=== PATIENT | female | born 1990 | race Caucasian/White ===

== ENCOUNTER 2017-09-10 10:31 | Emergency (ER) | payer OTHER ==
[2017-09-10 11:28] LABS: #Eosinphils 0.1 thou/uL (0.0-0.7); #Lymphocytes 1.8 thou/uL (1.20-3.40); #Monocytes 0.5 thou/uL (0.11-0.59); #Neutrophils 7.6 thou/uL (1.40-6.50); %Basophils 0.3 % (0.0-1.0); %Eosinophils 0.7 % (0.0-10.0); %Lymphocytes 18.2 % (21.0-51.0); %Monocytes 4.6 % (0.0-10.0); Hematocrit 38.5 % (36.0-47.0); Mean Platelet Volume 7.5 fL (7.4-10.4); Red Blood Cell (RBC) Count 4.45 mill/uL (4.20-5.40)
[2017-09-10 12:22] LABS: Bilirubin Negative (Negative); Blood, Urine Negative (Negative); Glucose, Urine (Dipstick) Negative (Negative); Ketone, Urine Negative (Negative); Nitrite Negative (Negative); Protein, Urine (Dipstick) Negative (Neg-Trace); Urobilinogen 0.2 mg/dL (0.2-1.0)
--- NOTE | 2017-09-10 13:31 | ULT ---
ULTRASOUND PELVIC TRANSVAGINAL: HISTORY: Pain and bleeding. HCG is 81,762. LMP 06/30/17. TECHNIQUE: Real-time, harris scale, and color evaluation as well as spectral analysis of the pelvis with transabd ominal and transvaginal approach. FINDINGS: The uterus is normal. The right ovary and left ovary are normal. Adequate vascular flow. There is an intrauterine gestational sac with a pole with a heart rate documented at 158 b.p.m . No significant subchorionic hemorrhage. The crown-rump length measures 3.32 cm, 10 week 1 day. Estimated age by ultrasound is 10 week 1 day with estimated date of delivery 04/07/18. IMPRESSION: Single viable intrauterine with average ultrasound age 10 weeks 2 days, estimated date of delivery 04/07/18. This is concordant with the gestational age. POS: [facility]
== END 2017-09-10 14:46 | disposition home or self-care (01) ==
LOC: ERS 10:31
DX: O20.0 Threatened abortion (principal); O99.331 Smoking (tobacco) complicating pregnancy, first trimester; F17.210 Nicotine dependence, cigarettes, uncomplicated; O10.911 Unspecified pre-existing hypertension complicating pregnancy, first trimester; E03.9 Hypothyroidism, unspecified; O99.281 Endocrine, nutritional and metabolic diseases complicating pregnancy, first trimester; Z3A.10 10 weeks gestation of pregnancy
CPT/HCPCS: 36415; 51701; 76856; 81003; 81025; 84702; 85025; A4353

== ENCOUNTER 2017-11-04 15:53 | Emergency (ER) | payer OTHER ==
[2017-11-04] MEDS ORDERED: Promethazine HCl 25 MG/ML VIAL ONE (16:19)
[2017-11-04] MEDS ORDERED: hydrALAZINE 20 MG/ML VIAL ONE (16:19)
[2017-11-04] MEDS ORDERED: HYDROcodone/Acetaminophen 5/325 mg Tablet ONE (17:19)
== END 2017-11-04 20:15 | disposition home or self-care (01) ==
LOC: ERS 15:53
DX: O10.912 Unspecified pre-existing hypertension complicating pregnancy, second trimester (principal); O99.282 Endocrine, nutritional and metabolic diseases complicating pregnancy, second trimester; E03.9 Hypothyroidism, unspecified; Z87.891 Personal history of nicotine dependence; Z3A.18 18 weeks gestation of pregnancy
CPT/HCPCS: 96365; 96366; 96375; J0360; J2550

== ENCOUNTER 2018-02-13 01:15 | Day surgery (SDC) | payer OTHER ==
[2018-02-13 02:01] VITALS: BP 134/62; TEMP 98.2; BMI 58.2
[2018-02-13] MEDS ORDERED: Lactated Ringer's 1,000 ML IV SCH ×2 (02:30)
--- NOTE | 2018-02-13 02:30 | PDOC.LDHP ---
Labor and Delivery H&P HPI: This is a patient of Dr Gardner who presents to L&D at 0215 with a complaint of "high blood pressure at home and contractions". She is a 27 yo at 32 weeks and 4 days. She has a HX of CHTHN on labetolol 100mg po BID but her last dose was 100mg because she ran out of her medication. She has hypothyrdoidism on synthroid. NO recent sex or trauma. No VB. She states she is "always wet" in the vaginal area but does not describe leakage or gush of fluid. No visual changes but she does have a headache. No RUQ pain. Good FM. Pror CS HX at term x 2 Review of Systems: a complete ROS was performed and results per HPI. Family History noncontributory Current gestational age (weeks): 32 (4 days) Dating criteria: last menstrual period Grav: 4 Para: 2 Current complications: hypertension, other (Morbid obesity) Current medications: other (Labetolol 200mg po BID; Synthroid) Previous surgical history: other (Prior CS x 2 at term; Hx cardiac ablation; HX cholecystectomy) Allergies/Adverse Reactions: Allergies Allergy/AdvReac Type Severity Reaction Status Date / Time Sulfa (Sulfonamide Allergy Severe Severe Verified 07/20/15 05:41 Antibiotics) Hives meperidine HCl [From Demerol] Allergy Intermediate Verified 07/20/15 05:41 Social history: none - Physical Exam Vital signs reviewed and normal: yes (BP 130/60-70s, Pulse 70s) General: NAD Heart: RRR Lungs: CTAB Abdomen: other (morbid obesity) FHT: category 1 (difficult to trace due to BMI) Redan contractions every: irregular - Assessment 1. Threatened labor at 32 weeks 4 days 2. CHTN on medication 3. Hypothyroid on medication 4. Morbid obesity 5. Prior CS x 2 - Plan Plan: observation in L&D (We will: 1. Obtain CBC, CMP, urine protein/Cr ratio, FFN, Amnisure for now 2. If FFN positive (no recent sex HX), check cervix and give steroids. No MagSo4 for neuroprotection as over the 32 week cutoff 3. Get sono for EFW/EGA 4. Monitors 5. IVF hydrate)
[2018-02-13 02:51] LABS: Creatinine, Urine 54.39 mg/dL (47-110); Protein, Urine Random Quant Less than 10 mg/dL
[2018-02-13 03:11] LABS: #Basophils 0.1 thou/uL (0.0-0.2); #Eosinphils 0.1 thou/uL (0.0-0.7); #Lymphocytes 2.7 thou/uL (1.20-3.40); #Monocytes 0.9 thou/uL (0.11-0.59); #Neutrophils 11.5 thou/uL (1.40-6.50); %Basophils 0.4 % (0.0-1.0); %Eosinophils 0.7 % (0.0-10.0); %Lymphocytes 17.7 % (21.0-51.0); %Monocytes 5.8 % (0.0-10.0); %Neutrophils 75.5 % (42.0-75.0); Hemoglobin 10.1 g/dL (12.0-16.0); Mean Corpuscular HGB CONC 34.8 g/dL (32.0-36.0); Mean Corpuscular Volume 86.1 fl (81.0-99.0); Mean Platelet Volume 8.5 fL (7.4-10.4); Platelet Count 248 thou/uL (130-400); RBC Distribution Width 13.9 % (11.5-14.5); Red Blood Cell (RBC) Count 3.37 mill/uL (4.20-5.40); White Blood Cell (WBC) Count 15.2 thou/uL (4.8-10.8)
[2018-02-13 03:20] LABS: Amnisure Test No Membranes Rupture (No Rupture)
[2018-02-13 03:21] LABS: Amnisure Internal Control QC ACCEPTABLE (ACCEPTABLE)
--- NOTE | 2018-02-13 03:26 | PDOC.EVN ---
Event Note - Event Note Event Note: @0325: Amnisure negative. Urine protein negative. FFN still pending in lab.
[2018-02-13 03:32] LABS: ALT (SGPT) 12 U/L (8-55); AST (SGOT) 10 U/L (5-34); Albumin 3.6 g/dL (3.5-5.0); Alkaline Phosphatase 94 U/L (40-150); Anion Gap 12 mmol/L (10-20); BUN (Urea Nitrogen) 11 mg/dL (7.0-18.7); Bilirubin, Total 0.6 mg/dL (0.2-1.2); Calc. Creatinine Clearance 311 mL/min (70-130); Calcium 10.1 mg/dL (7.8-10.44); Carbon Dioxide 24 mmol/L (22-29); Chloride 105 mmol/L (98-107); Estimated GFR-MDRD Greater than 90; Globulin 3.4 g/dL (2.4-3.5); Glucose 95 mg/dL (70-105); Potassium 3.9 mmol/L (3.5-5.1); Sodium 137 mmol/L (136-145)
[2018-02-13 03:34] LABS: FFN Internal QC Analyzer PASS (PASS); FFN Internal QC Cassette PASS (PASS); Fetal Fibronectin Negative (Negative)
--- NOTE | 2018-02-13 03:45 | PDOC.EVN ---
Event Note - Event Note Event Note: @0340: Lab check: FFN is negative. patient feels better after IVFs. Bps are 120s/70s. I have seen her again at bedside; clinically well with no evidence PTL by FFN or overall impression. I will keep on L&D for 1-2 more hours and keep with IVF hydration and likely send home to follow up the VP3 result as an outpatient. Rene done, report pending.
--- NOTE | 2018-02-13 17:15 | ULT ---
PRELIMINARY REPORT/[facility]/EMERGENCY AFTER HOURS PROCEDURE: EXAM: US Uterus, Limited EXAM DATE/TIME: Exam ordered 02/13/2018 3:01 AM CLINICAL HISTORY: 27 years old, female; Pain; complicated by abdominal or pelvic pain; Lower; Third trimester ; Gestational age or lmp: 34w0d; ; Prior surgery; Surgery date: 6+ months; Surgery type: C-se c; Patient HX: Morbid obesity, threatened labor TECHNIQUE: Real-time ultrasound of the maternal uterus (limited) with image documentation. COMPARISON: No relevant prior studies available. FINDINGS: Fetus: Single live intrauterine gestation. biometry measurements are compatible with estimated gestational age of 34 weeks zero days. Estimated weight is 2096 g. Position: position is transverse with head maternal left. Heart rate: heart rate 145 beats per minute. Placenta: Placenta is posterior and unremarkable. No abruption. Amniotic fluid: Amniotic fluid volume is normal with an LAURIE of 18.9 centimeters. Cervix: Cervix is closed with length measuring approximately 4.9 cm on Limited transabdominal IMPRESSION: Single live intrauterine gestation as above. Thank you for allowing us to participate in the care of your patient. Dictated and Authenticated by: Antonio Kate MD 02/13/2018 4:14 AM Central Time ([place] & [place]) FINAL REPORT EMERGENCY AFTER HOURS STUDY: ULTRASOUND OBSTETRICAL COMPLETE: HISTORY: 27-year-old female in third trimester of with threatened . FINDINGS: number: Gallegos lie: Transverse, head to maternal left. Maternal cervix: 5 cm in length and closed. Placenta: Posterior, no placenta previa. Amniotic fluid volume: LAURIE = 19 cm heart rate: 145 bpm The following anatomy is visualized, with no evidence of anomalies: Head, lateral ventricles, fourth ventricle, stomach, kidneys, nose and lips, upper extremities and lo wer extremities. The rest of the anatomy is poorly visualized due to maternal body habitus. biometry: Head circumference (HC): 31.6 cm 35 w 3 d Biparietal diameter (BPD): 8.4 cm 33 w 6 d Abdominal circumference (AC): 28.5 cm 32 w 3 d Femur length (FL): 6.4 cm 32 w 6 d Average ultrasound age (AUA): 34 w 0 d Estimated date of delivery ([place]): 03-27-18 Last menstrual period (LMP): 8--17 Gestational age by LMP: 32 w 4 d Estimated weight (EFW): 2096 g, +/- 310 g (4 lbs. 0 oz., +/- 11 oz. The report agrees with the preliminary report by [facility] IMPRESSION: 1. Live third trimester intrauterine gestation. 2. Estimated gestational age of 34 weeks, 0 days. 3. Transverse lie, with head to maternal left. JEFF Ching POS: [facility]
== END 2018-02-13 05:10 | disposition home or self-care (01) ==
LOC: L&D/OP 01:15
PROVIDERS: ATTEND Family Medicine
DX: O47.03 False labor before 37 completed weeks of gestation, third trimester (principal); O10.913 Unspecified pre-existing hypertension complicating pregnancy, third trimester; O99.283 Endocrine, nutritional and metabolic diseases complicating pregnancy, third trimester; E03.9 Hypothyroidism, unspecified; O99.213 Obesity complicating pregnancy, third trimester; E66.01 Morbid (severe) obesity due to excess calories; Z3A.32 32 weeks gestation of pregnancy; Z68.43 Body mass index [BMI] 50.0-59.9, adult; Z79.899 Other long term (current) drug therapy; Z88.2 Allergy status to sulfonamides; Z88.5 Allergy status to narcotic agent; Z98.891 History of uterine scar from previous surgery
CPT/HCPCS: 59025; 76815; 80053; 82570; 82731; 84112; 84156; 85025; 87480; 87510; 87660; 96360; 96361; 99285

== ENCOUNTER 2018-08-14 12:42 | Emergency (ER) | payer OTHER, SELFPAY ==
[2018-08-14 13:21] LABS: #Eosinphils 0.3 thou/uL (0.0-0.7); #Lymphocytes 1.9 thou/uL (1.20-3.40); #Monocytes 0.4 thou/uL (0.11-0.59); %Basophils 0.5 % (0.0-1.0); %Eosinophils 3.5 % (0.0-10.0); %Lymphocytes 22.3 % (21.0-51.0); %Monocytes 4.1 % (0.0-10.0); %Neutrophils 69.7 % (42.0-75.0); Hemoglobin 11.5 g/dL (12.0-16.0); Mean Corpuscular HGB CONC 32.7 g/dL (32.0-36.0); Mean Corpuscular Hemoglobin 26.2 pg (27.0-31.0); Mean Platelet Volume 8.5 fL (7.4-10.4); Platelet Count 301 thou/uL (130-400); RBC Distribution Width 14.5 % (11.5-14.5); Red Blood Cell (RBC) Count 4.39 mill/uL (4.20-5.40); White Blood Cell (WBC) Count 8.6 thou/uL (4.8-10.8)
[2018-08-14 13:35] LABS: Bilirubin Negative (Negative); Blood, Urine Negative (Negative); Clarity CLEAR (Clear); Glucose, Urine (Dipstick) Negative (Negative); Leukocyte Trace (Negative); Nitrite Negative (Negative); Protein, Urine (Dipstick) Negative (Neg-Trace); Urobilinogen 0.2 mg/dL (0.2-1.0)
[2018-08-14 13:37] LABS: Bacteria/HPF 3+ HPF (None Seen); Hyaline Casts/LPF 0-3 HYALINE CAST LPF (0-3 Hyaline); Pathc Cast-AUWi Flag 0.14 (0-2.49); RBC/HPF 0-3 HPF (0-3); Squamous Epithelial 0-3 HPF (0-3)
[2018-08-14 13:39] LABS: Pregnancy Test - Urine (BHCG) Negative (Negative); Pregu Control Background? CLEAR/WHITE (CLR/WHITE); Pregu Control Bar Appear? YES (CONTROL BAR)
[2018-08-14 13:47] LABS: Anion Gap 13 mmol/L (10-20); BUN (Urea Nitrogen) 13 mg/dL (7.0-18.7); Calc. Creatinine Clearance 0 mL/min (70-130); Carbon Dioxide 24 mmol/L (22-29); Chloride 105 mmol/L (98-107); Estimated GFR-MDRD 74; Potassium 3.7 mmol/L (3.5-5.1); Sodium 138 mmol/L (136-145)
[2018-08-14 13:48] LABS: ALT (SGPT) 29 U/L (8-55); AST (SGOT) 27 U/L (5-34); Albumin 4.4 g/dL (3.5-5.0); Alkaline Phosphatase 108 U/L (40-150); Bilirubin, Total 0.7 mg/dL (0.2-1.2); Calcium 9.3 mg/dL (7.8-10.44); Globulin 3.6 g/dL (2.4-3.5); Glucose 133 mg/dL (70-105)
[2018-08-14 13:50] LABS: Troponin I Less than 0.010 ng/mL (< 0.028)
[2018-08-14] MEDS ORDERED: ISOVUE-370 76%-LOCM 1 ML ONE (13:58)
[2018-08-14] MEDS ORDERED: diphenhydrAMINE 50 MG/ML VIAL ONE (14:00)
[2018-08-14] MEDS ORDERED: Ondansetron HCl/PF 4 MG/2 ML Vial ONE (14:00)
[2018-08-14] MEDS ORDERED: Labetalol HCl 100 MG/20 ML VIAL ONE (14:54)
--- NOTE | 2018-08-14 15:22 | CT ---
CT ANGIO CHEST PERFORMED WITH IV CONTRAST ENHANCEMENT AND 3D RECONSTRUCTIONS: Date: 08/14/18 HISTORY: Heart palpitations. Patient felt chest tightness after developing pain in her calf. FINDINGS: The lungs are clear of any infiltrates. No pulmonary nodules or pleural effusions. No significant mediastinal adenopathy. The pulmonary artery opacification is very suboptimal. I do no t see any large proximal embolus. Visualized liver parenchyma is normal. Right and left adrenal glands are normal. IMPRESSION: Very limited examination. No evidence for any large central pulmonary embolus. POS: [facility]
--- NOTE | 2018-08-14 17:22 | ULT ---
BILATERAL LOWER EXTREMITY VENOUS ULTRASOUND WITH DOPPLER: Date: 08/14/18 HISTORY: Bilateral lower extremity pain. COMPARISON: None. TECHNIQUE: Walker scale, color flow, Doppler imaging, and spectral waveform analysis performed of the left and rig ht lower extremity deep venous system. FINDINGS: Bilaterally, there is compressibility, presence of flow, and augmentation in the common femoral, femo ral vein, and popliteal vein. There is flow in bilateral greater saphenous veins, profunda veins, and posterior tibial veins. IMPRESSION: No evidence of thrombus in the left or right lower extremity deep venous system. POS: [facility]
--- NOTE | 2018-08-15 17:01 | EKG ---
Test Reason : Blood Pressure : / mmHG Vent. Rate : 124 BPM Atrial Rate : 124 BPM P-R Int : 154 ms QRS Dur : 086 ms QT Int : 326 ms P-R-T Axes : 028 -01 068 degrees QTc Int : 468 ms Sinus tachycardia Left ventricular hypertrophy with repolarization abnormality Abnormal ECG Confirmed by LUIS A VENCES, DR. Nascimento ([id number]) on 08/15/2018 5:01:14 PM Referred By: Confirmed By:DR. Pily GUNN MD
== END 2018-08-14 17:32 | disposition home or self-care (01) ==
LOC: ERS 12:42
DX: R00.0 Tachycardia, unspecified (principal); I10 Essential (primary) hypertension; E03.9 Hypothyroidism, unspecified; F17.210 Nicotine dependence, cigarettes, uncomplicated; Z79.899 Other long term (current) drug therapy
CPT/HCPCS: 71275; 80053; 81003; 81015; 81025; 83880; 84484; 85025; 93005; 93970; 96361; 96374; 96375; J1200; J2405